=== PATIENT | male | born 1980 | race Caucasian/White ===

== ENCOUNTER 2025-01-11 13:29 | Outpatient (CLI) | payer OTHER, SELFPAY ==
--- NOTE | 2025-01-11 15:00 | NEURO_ITS ---
Impression: # Non-diabetic complains of Nocturnal Paresthesia of Left hand ? # Left moderate Carpal Tunnel Syndrome ? # Subtle evolving Left Ulnar Neuropathy ? # Normal Needle/ EMG exam Nerve Conduction Studies ?Stim Site NR Peak (ms) P-T Amp (?V) Site1 Site2 Delta-P (ms) Dist (cm) Charles (m/s) Left Median Anti Sensory (2-3nd Digit) Wrist ? 5.5 11.3 Wrist 2-3nd Digit 5.5 14.0 25 Wrist ? 4.8 16.7 Wrist 2-3nd Digit 5.5 14.0 25 Left Radial Anti Sensory (Base 1st Digit) Wrist ? 2.1 9.8 Wrist Base 1st Digit 2.1 0.0 Left Ulnar Anti Sensory (5th Digit) Wrist ? 2.9 54.7 Wrist 5th Digit 2.9 14.0 48 ?Stim Site NR Onset (ms) O-P Amp (mV) Site1 Site2 Delta-0 (ms) Dist (cm) Charles (m/s) Left Median Motor (Abd Poll Brev) Wrist ? 4.8 1.2 Elbow Wrist 5.3 32.0 60 Elbow ? 10.1 4.1 Left Ulnar Motor (Abd Dig Minimi) Wrist ? 2.7 6.1 A Elbow Wrist 5.4 30.0 56 A Elbow ? 8.1 5.2 B Elbow Wrist 4.2 23.0 55 B Elbow ? 6.9 3.0 Electromyography ?Side Muscle Nerve Root Ins Act Fibs Amp Dur Recrt Comment Left 1stDorInt Ulnar C8-T1 Nml Nml Nml Nml Nml Left Ext Indicis Radial (Post Int) C7-8 Nml Nml Nml Nml Nml Left Ext Digitorum Radial (Post Int) C7-8 Nml Nml Nml Nml Nml Left BrachioRad Radial C5-6 Nml Nml Nml Nml Nml Left PronatorTeres Median C6-7 Nml Nml Nml Nml Nml Left Abd Poll Brev Median C8-T1 Nml Nml Nml Nml Nml Left ABD Dig Min Ulnar C8-T1 Nml Nml Nml Nml Nml Left FlexPolLong Median (Ant Int) C7-8 Nml Nml Nml Nml Nml Left Abd Poll Long Radial (Post Int) C7-8 Nml Nml Nml Nml Nml
== END 2025-01-11 13:30 | disposition home or self-care (01) ==
LOC: ANHNEURO 13:31
PROVIDERS: PCP Physician Assistant; Visit Provider Physician Assistant
DX: G56.02 Carpal tunnel syndrome, left upper limb (principal); G56.22 Lesion of ulnar nerve, left upper limb; Z00.00 Encounter for general adult medical examination without abnormal findings; F33.9 Major depressive disorder, recurrent, unspecified; K02.9 Dental caries, unspecified; F15.20 Other stimulant dependence, uncomplicated; F41.9 Anxiety disorder, unspecified; K59.00 Constipation, unspecified; F60.2 Antisocial personality disorder; H52.4 Presbyopia; K64.9 Unspecified hemorrhoids; L98.8 Other specified disorders of the skin and subcutaneous tissue
CPT/HCPCS: 95886; 95909